=== PATIENT | female | born 1980 | race Caucasian/White ===

== ENCOUNTER 2016-10-13 11:41 | Emergency (ER) | payer BC, MEDICAID, OTHER, SELFPAY ==
[~2016-10-13] VITALS: Ht 154.9 cm; Wt 91.2 kg
[2016-10-13] MEDS ORDERED: BUSP15TA PO (12:30)
[2016-10-13] MEDS ORDERED: FLUV50TA2 PO (12:30)
[2016-10-13] MEDS ORDERED: KETOROLAC 30 MG/1 ML IM ONE (12:30)
[2016-10-13] MEDS ORDERED: OMEG-76 PO (12:30)
[2016-10-13] MEDS ORDERED: LORazepam 1MG TABLET PO ONE (12:30)
[2016-10-13] MEDS ORDERED: ASPI-515 PO (12:30)
[2016-10-13] MEDS ORDERED: LORA-445 PO (12:30)
[2016-10-13] MEDS ORDERED: KETOROLAC 30 MG/1 ML ONE (12:33)
[2016-10-13] MEDS ORDERED: LORazepam 1MG TABLET ONE (12:33)
[2016-10-13 12:50] LABS: BLOOD UREA NITROGEN 8 mg/dL (7-18)
[2016-10-13 12:56] LABS: IS PT STATUS REG ER OR PRE ER? YES
[2016-10-13 14:02] VITALS: BP 138/72
== END 2016-10-13 16:03 | disposition home or self-care (01) ==
LOC: ED 13:04
DX: R07.89 Other chest pain (principal); F41.1 Generalized anxiety disorder; R06.4 Hyperventilation; F17.200 Nicotine dependence, unspecified, uncomplicated; F42.9 Obsessive-compulsive disorder, unspecified
CPT/HCPCS: 36415; 71020; 80048; 82040; 84484; 85025; 85379; 93005; 96372; 99285; J1885

== ENCOUNTER 2017-12-15 12:34 | Emergency (ER) | payer OTHER ==
[~2017-12-15] VITALS: Ht 157.5 cm; Wt 91.1 kg
[~2017-12-15 12:34] MED LIST: ASPI-515 PO; BUSP15TA PO; FLUV50TA2 PO; LORA-445 PO; OMEG-76 PO
[2017-12-15] MEDS ORDERED: SODIUM CHLORIDE FLUSH 10ML SYR IVF ONE (13:30)
[2017-12-15 13:32] LABS: BASOPHILS # (AUTO) 0.07 x10^3/uL (0-0.1); BASOPHILS % (AUTO) 1 % (0-1); EOSINOPHILS # (AUTO) 0.07 x10^3/uL (0-0.4); EOSINOPHILS % (AUTO) 1 % (1-7); LYMPHOCYTES # (AUTO) 1.89 x10^3/uL (1-3.4); LYMPHOCYTES % (AUTO) 17 % (22-44); MD NO; MEAN CORPUSCULAR HGB CONC 34.5 g/dL (32.4-35.8); MEAN CORPUSCULAR VOLUME 86.7 fL (80-100); MEAN PLATELET VOLUME 8.9 fL (7.4-10.4); MONOCYTES # (AUTO) 0.41 x10^3/uL (0.2-0.8); MONOCYTES % (AUTO) 4 % (2-9); NEUTROPHILS % (AUTO) 78 % (42-75); PLATELET COUNT 335 x10^3/uL (130-400); RED BLOOD COUNT 5.07 x10^6/uL (3.82-5.3); RED CELL DISTRIBUTION WIDTH 12.5 % (9.6-15.2)
[2017-12-15] MEDS ORDERED: PROP60CA PO (13:37)
[2017-12-15] MEDS ORDERED: CHOLESTYRAMINE PO (13:37)
[2017-12-15] MEDS ORDERED: RANI150T23 PO (13:37)
[2017-12-15 13:39] LABS: MICROSCOPIC NOT IND
[2017-12-15 13:44] LABS: ALANINE AMINOTRANSFERASE 98 U/L (12-78); ALBUMIN 3.9 g/dL (3.4-5.0); ANION GAP 9 mmol/L (5-15); CALCIUM 9.6 mg/dL (8.5-10.1); CHLORIDE 111 mmol/L (98-107); CREATININE 0.57 mg/dL (0.55-1.02); CULTURE INDICATED? NO
[2017-12-15 13:46] LABS: ALKALINE PHOSPHATASE 110 U/L (45-117); BILIRUBIN,TOTAL 0.5 mg/dL (0.2-1.0)
[2017-12-15] MEDS ORDERED: OMNIPAQUE 350 MG/ML, 100ML BOTTLE ONE (15:09)
[2017-12-15 16:09] VITALS: BP 95/58
== END 2017-12-15 16:23 | disposition home or self-care (01) ==
LOC: ED 15:53
DX: R10.12 Left upper quadrant pain (principal); R10.13 Epigastric pain; R19.7 Diarrhea, unspecified
CPT/HCPCS: 36415; 74177; 80053; 81003; 83690; 85025; 99285; Q9967